=== PATIENT | female | born 1965 | race Caucasian/White ===

== ENCOUNTER → 2020-12-25 06:41 | Outpatient (CLI) | payer BC, SELFPAY ==
--- NOTE | 2020-12-25 06:58 | CT_ITS ---
STUDY: CT CHEST WITHOUT CONTRAST REASON FOR EXAM: Female, 55 years old. DYSPNEA,COUGH,ASTHMA RADIATION DOSAGE (If Supplied By Facility): CTDIvol = ( 7.64 ) mGy, DLP = ( 259.64 ) mGycm TECHNIQUE: Transaxial imaging was performed without the administration of intravenous contrast material. Multiplanar coronal and sagittal images were reformatted. Individualized dose optimization techniques were used for this CT. COMPARISON: None. FINDINGS: 5.4 cm x 5 cm bulla in the anterior medial aspect of the right upper lobe. Tiny calcified granuloma in the right upper lobe and right lower lobe. Increased linear markings with focal bronchiectasis in the anterior aspect of the right lower lobe. Mild increased markings at the left lung base with area of confluence in the lateral aspect of the left lower lobe as seen on axial image #96. This most likely represents a focal area of scarring. Focal area scarring is also seen in the posterior aspect of the right lower lobe abutting the pleura. A six-month follow-up examination is recommended for further evaluation. There is no demonstrated pleural abnormality. Normal heart and pericardium. There are multiple small lymph nodes within the mediastinum, which are normal in size and morphology most compatible with reactive lymph hyperplasia. Normal hilar regions. Normal unenhanced pulmonary arteries. Normal aorta arch and descending thoracic aorta. There are multi-level degenerative changes of the thoracic spine. There is no demonstrated abnormality of the visualized upper abdomen. CT/Chest without Contrast IMPRESSION: 5.4 TRAN by 5 cm bulla in the anterior medial aspect of the right upper lobe. Findings suggestive of scarring with focal nodular appearance in the lateral aspect of the left lower lobe as well as in the posterior aspect of the right lower lobe as described. A 6 month follow-up examination is recommended. Electronically Signed: Vasu Goins MD at 9:11 EDT , Service support ,
== END ==
PROVIDERS: PCP Nurse Practitioner Family; Visit Provider Internal Medicine Pulmonary Disease
DX: J45.909 Unspecified asthma, uncomplicated (principal); R06.00 Dyspnea, unspecified; R05 Cough
CPT/HCPCS: 71250

== ENCOUNTER 2021-01-13 10:38 | Day surgery (SDC) | payer BC, SELFPAY ==
[2021-01-13] VITALS (17 sets, daily range): BP systolic 93–122; BP diastolic 59–104; PULSE 60–96; RESP 12–28; TEMP 36.5–37.3; O2SAT 92–100; BMI 25.0
--- NOTE | 2021-01-13 | FLU_PTH ---
PATIENT: LEANNE REYEZ LOC: EN U#:[id number] AGE/SX: 55/F ROOM: RE01/13/[address]: Dr. Ras Portillo MD : 1965 BED: DIS: 01/13/2021 SPEC #: [id number] RECD: 01/13/21 13:14 STATUS: MAURIZIO REDenisse #: [id number] CARMELA: 01/13/21 00:[address]: Ras Portillo V DEPT: CYTOLOGY RECD BY: Sea [place] ENTERED: 01/14/21 08:46 SP TYPE: Fluid OTHR DR: Lacy Conklin, NURSE SITTER-C Tissues: Bronchus of left lower lobe Procedures: Special Stain Group II Surgery Specimen Level IV Cytospin Fluid HEADER OPERATION: Bronch BAL - LLL PRE-OP DIAGNOSIS: J38.5 TISSUE SUBMITTED: BAL, LLL DIAGNOSIS CYTOLOGY Bronchioalveolar lavage, left lower lobe of lung (cytospins and cell block): Negative for malignant cells Acute inflammatory cells. Negative for acid fast bacilli. Negative for fungal organisms. See Comment. JACQUES:jacques 01/15/21 COMMENT AFB and GMS stains with matched controls are negative for microorganisms. CYTOLOGY STUDY Slides are reviewed. CYTOLOGY GROSS Received is 25 ml of cloudy beige thick fluid labeled with the patient's name and and designated per the requisition as BAL LLL. Submitted for cytology preparation including cell block./AM;jacques 01/14/21 CPT: 31180
[2021-01-13] MEDS: Lactated Ringers 1,000 ML 100 ML IV (11:09)
[2021-01-13] MEDS: Ipratropium/Albuterol Sulfate 3 ML AMPUL.NEB INHALATION (11:43)
[2021-01-13] MEDS: Lidocaine 2% Jelly 1 APPLIC Tube (12:13)
[2021-01-13] MEDS: Phenylephrine 0.25% 15 ML NASAL.SRY 15 SPRAY NASAL (12:13)
[2021-01-13] MEDS: Lidocaine 2% (5ml sdv) 5 ML VIAL.MPF (12:13)
--- NOTE | 2021-01-13 13:06 | OP.BRONCH_ITS ---
Patient Name: Darlyn Wray Procedure Date: 01/13/2021 12:13 PM Date of : 1965 Age: 55 Procedure: Bronchoscopy Indications: Chronic cough with abnormal CT Providers: Ras Portillo MD Medicines: Lidocaine 2% Nebulizer 3 mL, Lidocaine applied to nares and subglottic space Complications: Vocal cord spasm with desaturation briefly to 50s, responding to high flow oxygen. <1 min, sats returned to high 90s Procedure: Pre-Anesthesia Assessment: - A History and Physical has been performed. The patient's medications, allergies and sensitivities have been reviewed. - The risks and benefits of the procedure and the sedation options and risks were discussed with the patient. All questions were answered and informed consent was obtained. - Pre-procedure physical examination revealed no contraindications to sedation. - Anasthesia under the supervision of a ARCHITECTURE DRAFTER was determined to be medically necessary for this procedure. After I obtained informed consent, the scope was passed under direct vision. Throughout the procedure, the patient's blood pressure, pulse, and oxygen saturations were monitored continuously. The bronchoscope was introduced through the left nostril and advanced to the tracheobronchial tree of both lungs. The procedure was accomplished with moderate difficulty due to laryngospasm. Pt did well with high flow oxygen and higher level of sedation. Moderate Sedation: An independent trained observer was present and continuously monitored the patient. Findings: Bronchoalveolar lavage was performed in the LLL lateral basal segments (B9) of the lung and sent for cell count and differential, aerobic culture, anaerobic culture, AFB analysis & culture and fungal analysis. 120 mL of fluid were instilled. 60 mL were returned. The return was blood-tinged and cloudy. There were no mucoid plugs in the return fluid. Multiple specimens were obtained, and each sent for analysis. Impression: Bronchiectasis with thick secretions, Recommendation: await culture Procedure Code(s): --- Professional --- 84180, Bronchoscopy, rigid or flexible, including fluoroscopic guidance, when performed; with bronchial alveolar lavage Diagnosis Code(s): --- Professional --- R05, Cough R91.8, Other nonspecific abnormal finding of lung field CPT copyright 2017 [employer]. All rights reserved. The codes documented in this report are preliminary and upon pressure controller review may be revised to meet current compliance requirements. MD Ras Adames MD 01/13/2021 1:05:17 PM This report has been signed electronically. Number of Addenda: 0 Note Initiated On: 01/13/2021 12:13 PM
--- NOTE | 2021-01-13 13:28 | SUR.PHASEI ---
ON PACU ARRIVAL, STRIDOROUS INHALATION, C/O CANNOT BREATH, VERY FREQUENT COUGH, LUNGS CLEAR PER AUSCULTATION, AUDIBLE UPPER AIRWAY ADVENTITIOUS SOUNDS. CALLED TITO HURLEY & ABRAHAM TO BEDSIDE. DR HURLEY ORDERED ADDITIONAL DUONEB. DR ROSARIO ORDERED HELIOX THERAPY [80/20] AND RACEMIC EPINEPHRINE AEROSOL TX. PATIENT REPORTS FEELING MUCH IMPROVED WITH RACEMIC EPI & HELIOX THERAPY. COUGHING SUBSIDED.
[2021-01-13 14:27] LABS: Appearance/Body Fluid CLOUDY; Color/Body Fluid SLIGHTLY PINK; Source- Body Fluid BRONCHIAL LAVAGE
[2021-01-13 14:28] LABS: Red Cell Count/Body Fluid 997 /mm3; White Blood Count/Body Fluid 942 /mm3
[2021-01-13 14:55] LABS: Lymphocytes 38 %; Neutrophil (Segs) 62 %
[2021-01-13 14:58] LABS: Body Fluid QC Type(s) BF1Q
[2021-01-14 16:43] LABS: Pathologist Comment/Body Fluid Reviewed
== END 2021-01-13 15:05 ==
LOC: EN 10:40 → AC 10:41
PROVIDERS: PCP Nurse Practitioner Family; Referring Provider Nurse Practitioner Family; Visit Provider Internal Medicine Pulmonary Disease
PROC: 0BJ08ZZ Inspection of Tracheobronchial Tree, Via Natural or Artificial Opening Endoscopic (ICD-10-PCS; CPT 31622; principal; 2021-01-13 11:45)
DX: J47.9 Bronchiectasis, uncomplicated (principal); J45.40 Moderate persistent asthma, uncomplicated; J30.89 Other allergic rhinitis; I10 Essential (primary) hypertension; K21.9 Gastro-esophageal reflux disease without esophagitis; Z79.52 Long term (current) use of systemic steroids; Z79.899 Other long term (current) drug therapy
CPT/HCPCS: 31624; 87015; 87070; 87077; 87101; 87116; 87186; 87205; 87206; 88108; 88305; 88313; 89050; 94640; J7120; J2405

== ENCOUNTER → 2021-01-20 10:16 | Outpatient (CLI) | payer BC, SELFPAY ==
[2021-01-20] MEDS: 0.9% NaCl IVPB Med Flush (250 mL) 15 ML IV ×2 (10:27→19:07)
[2021-01-20] MEDS: 0.9% NaCl Peripheral Flush Adult/Peds IV ×3 (10:27→19:08)
[2021-01-20 10:31] VITALS: BP 128/77; PULSE 65; RESP 16; TEMP 37.1; O2SAT 95
[2021-01-20 19:09] VITALS: BP 129/83; PULSE 81; RESP 16; TEMP 37.2; O2SAT 98
[2021-01-20 20:03] VITALS: BP 121/74; PULSE 72; RESP 16; O2SAT 97
== END ==
PROVIDERS: PCP Nurse Practitioner Family; Referring Provider Nurse Practitioner Family; Visit Provider Nurse Practitioner Family
DX: J47.9 Bronchiectasis, uncomplicated (principal); B96.5 Pseudomonas (aeruginosa) (mallei) (pseudomallei) as the cause of diseases classified elsewhere
CPT/HCPCS: 96365 ×2; J7050; A4216

== ENCOUNTER → 2021-01-21 | Outpatient (CLI) | payer BC, SELFPAY ==
[2021-01-21] MEDS: 0.9% NaCl IVPB Med Flush (250 mL) 15 ML IV ×2 (07:41→18:59)
[2021-01-21] MEDS: 0.9% NaCl Peripheral Flush Adult/Peds IV ×3 (07:41→18:59)
[2021-01-21 08:00] VITALS: BP 122/77; PULSE 66; RESP 16; TEMP 36.3; O2SAT 99; BMI 24.7
[2021-01-21 19:06] VITALS: BP 107/60; PULSE 75; RESP 16; TEMP 37.1; O2SAT 99; BMI 24.7
== END | disposition home or self-care (01) ==
LOC: MEDOUTP 07:38
PROVIDERS: PCP Nurse Practitioner Family; Referring Provider Nurse Practitioner Family; Visit Provider Nurse Practitioner Family
DX: J47.9 Bronchiectasis, uncomplicated (principal); B96.5 Pseudomonas (aeruginosa) (mallei) (pseudomallei) as the cause of diseases classified elsewhere
CPT/HCPCS: 96365 ×2; J7050; A4216

== ENCOUNTER → 2021-01-22 07:28 | Outpatient (CLI) | payer BC, SELFPAY ==
[2021-01-22 07:38] VITALS: BP 128/72; PULSE 66; RESP 16; TEMP 36.3; O2SAT 99
[2021-01-22] MEDS: 0.9% NaCl Peripheral Flush Adult/Peds IV ×2 (07:43→19:27)
[2021-01-22] MEDS: 0.9% NaCl IVPB Med Flush (250 mL) 15 ML IV ×2 (07:43→19:27)
[2021-01-22 19:31] VITALS: BP 104/61; PULSE 74; RESP 16; TEMP 37; O2SAT 98; BMI 24.5
[2021-01-22 20:14] VITALS: BP 101/54; PULSE 74; RESP 16
[2021-01-28 03:07] LABS: Immunoglobulin A 328 mg/dL (87-352); Immunoglobulin G 823 mg/dL (586-1602); Immunoglobulin M 59 mg/dL (26-217)
[2021-01-28 07:39] LABS: Immunoglobulin E 17 IU/mL (6-495)
== END ==
PROVIDERS: PCP Nurse Practitioner Family; Referring Provider Nurse Practitioner Family; Visit Provider Nurse Practitioner Family
DX: J47.9 Bronchiectasis, uncomplicated (principal); J15.1 Pneumonia due to Pseudomonas
CPT/HCPCS: 96365 ×2; 36415; 82784; 82785; J7050; A4216

== ENCOUNTER → 2021-01-23 07:02 | Outpatient (CLI) | payer BC, SELFPAY ==
[2021-01-23] MEDS: 0.9% NaCl IVPB Med Flush (250 mL) 15 ML IV ×2 (07:33→19:00)
[2021-01-23] MEDS: 0.9% NaCl Peripheral Flush Adult/Peds IV ×2 (07:33→19:01)
[2021-01-23 07:38] VITALS: BP 117/63; PULSE 69; RESP 16; TEMP 36.5; O2SAT 100; BMI 24.7
[2021-01-23 08:24] VITALS: BP 110/67; PULSE 65; RESP 16; TEMP 36.6; O2SAT 100
[2021-01-23 19:08] VITALS: BP 110/56; PULSE 75; RESP 16; TEMP 36.6; O2SAT 96; BMI 24.7
[2021-01-23 19:43] VITALS: BP 102/58; O2SAT 95
== END ==
PROVIDERS: PCP Nurse Practitioner Family; Referring Provider Nurse Practitioner Family; Visit Provider Nurse Practitioner Family
DX: J47.9 Bronchiectasis, uncomplicated (principal); B96.5 Pseudomonas (aeruginosa) (mallei) (pseudomallei) as the cause of diseases classified elsewhere
CPT/HCPCS: 96365 ×2; J7050; A4216

== ENCOUNTER → 2021-01-24 07:14 | Outpatient (CLI) | payer BC, SELFPAY ==
[2021-01-24] MEDS: 0.9% NaCl Peripheral Flush Adult/Peds IV (07:34)
[2021-01-24 07:35] VITALS: BP 119/72; PULSE 62; RESP 16; TEMP 37.1; O2SAT 98
[2021-01-24] MEDS: 0.9% NaCl IVPB Med Flush (250 mL) 15 ML IV (07:35)
[2021-01-24 08:16] VITALS: BP 121/70; PULSE 68
[2021-01-24 19:06] VITALS: BP 126/74; PULSE 73; RESP 16; TEMP 36.6; O2SAT 98
== END ==
PROVIDERS: PCP Nurse Practitioner Family; Referring Provider Nurse Practitioner Family; Visit Provider Nurse Practitioner Family
DX: J47.9 Bronchiectasis, uncomplicated (principal); B96.5 Pseudomonas (aeruginosa) (mallei) (pseudomallei) as the cause of diseases classified elsewhere
CPT/HCPCS: 96365 ×2; J7050; A4216

== ENCOUNTER → 2021-01-25 07:31 | Outpatient (CLI) | payer BC, SELFPAY ==
[2021-01-25] MEDS: 0.9% NaCl Peripheral Flush Adult/Peds IV ×3 (07:43→18:38)
[2021-01-25] MEDS: 0.9% NaCl IVPB Med Flush (250 mL) 15 ML IV ×2 (07:44→18:41)
[2021-01-25 07:45] VITALS: BP 121/72; PULSE 71; RESP 16; TEMP 36.9; O2SAT 98; BMI 24.5
[2021-01-25 18:42] VITALS: BP 108/68; PULSE 76; RESP 16; TEMP 36.9; O2SAT 95
[2021-01-25 19:14] VITALS: BP 107/61; PULSE 69; RESP 16; TEMP 36.7; O2SAT 100
== END ==
PROVIDERS: PCP Nurse Practitioner Family; Referring Provider Nurse Practitioner Family; Visit Provider Nurse Practitioner Family
DX: J47.9 Bronchiectasis, uncomplicated (principal); B96.5 Pseudomonas (aeruginosa) (mallei) (pseudomallei) as the cause of diseases classified elsewhere
CPT/HCPCS: 96365 ×2; J7050; A4216

== ENCOUNTER → 2021-01-26 07:30 | Outpatient (CLI) | payer BC, SELFPAY ==
[2021-01-26] MEDS: 0.9% NaCl Peripheral Flush Adult/Peds IV ×2 (07:47→19:06)
[2021-01-26] MEDS: 0.9% NaCl IVPB Med Flush (250 mL) 15 ML IV ×2 (07:47→19:05)
[2021-01-26 07:48] VITALS: BP 105/63; PULSE 65; RESP 16; TEMP 36.7; O2SAT 98
[2021-01-26 19:07] VITALS: BP 103/58; PULSE 82; RESP 16; TEMP 36.4; O2SAT 97
[2021-01-26 19:42] VITALS: BP 103/61; PULSE 84; RESP 16; O2SAT 98
== END ==
PROVIDERS: PCP Nurse Practitioner Family; Referring Provider Nurse Practitioner Family; Visit Provider Nurse Practitioner Family
DX: J47.9 Bronchiectasis, uncomplicated (principal); B96.5 Pseudomonas (aeruginosa) (mallei) (pseudomallei) as the cause of diseases classified elsewhere
CPT/HCPCS: 96365 ×2; J7050; A4216

== ENCOUNTER → 2021-01-27 07:28 | Outpatient (CLI) | payer BC, SELFPAY ==
[2021-01-27] MEDS: 0.9% NaCl IVPB Med Flush (250 mL) 15 ML IV ×2 (07:41→19:05)
[2021-01-27] MEDS: 0.9% NaCl Peripheral Flush Adult/Peds IV ×2 (07:41→19:05)
[2021-01-27 07:44] VITALS: BP 110/70; PULSE 68; RESP 16; TEMP 37; O2SAT 98; BMI 25.4
[2021-01-27 18:58] VITALS: BP 110/63; PULSE 77; RESP 16; TEMP 35.9; O2SAT 96; BMI 24.7
[2021-01-27 19:54] VITALS: BP 99/58; PULSE 80; RESP 16; TEMP 36.4; O2SAT 96
== END ==
PROVIDERS: PCP Nurse Practitioner Family; Referring Provider Nurse Practitioner Family; Visit Provider Nurse Practitioner Family
DX: J47.9 Bronchiectasis, uncomplicated (principal); B96.5 Pseudomonas (aeruginosa) (mallei) (pseudomallei) as the cause of diseases classified elsewhere
CPT/HCPCS: 96365 ×2; J7050; A4216

== ENCOUNTER → 2021-01-28 07:33 | Outpatient (CLI) | payer BC, SELFPAY ==
[2021-01-28] MEDS: 0.9% NaCl IVPB Med Flush (250 mL) 15 ML IV ×2 (07:47→19:04)
[2021-01-28] MEDS: 0.9% NaCl Peripheral Flush Adult/Peds IV ×2 (07:47→19:04)
[2021-01-28 07:50] VITALS: BP 125/80; PULSE 72; RESP 16; TEMP 37; O2SAT 99; BMI 25.4
[2021-01-28 08:30] VITALS: BP 108/68; PULSE 66; RESP 16; TEMP 37.3; O2SAT 98
[2021-01-28 19:09] VITALS: BP 99/60; PULSE 74; RESP 16; TEMP 36.8; O2SAT 97
== END ==
PROVIDERS: PCP Nurse Practitioner Family; Referring Provider Nurse Practitioner Family; Visit Provider Nurse Practitioner Family
DX: J47.9 Bronchiectasis, uncomplicated (principal); B96.5 Pseudomonas (aeruginosa) (mallei) (pseudomallei) as the cause of diseases classified elsewhere
CPT/HCPCS: 96365 ×2; J7050; A4216

== ENCOUNTER → 2021-01-29 07:29 | Outpatient (CLI) | payer BC, SELFPAY ==
[2021-01-29] MEDS: 0.9% NaCl Peripheral Flush Adult/Peds IV ×2 (07:38→19:07)
[2021-01-29] MEDS: 0.9% NaCl IVPB Med Flush (250 mL) 15 ML IV ×2 (07:38→19:06)
[2021-01-29 07:40] VITALS: BP 123/74; PULSE 70; RESP 16; TEMP 36.6; O2SAT 98
[2021-01-29 08:18] VITALS: BP 116/68; PULSE 68; RESP 16; O2SAT 99
[2021-01-29 19:04] VITALS: BP 101/55; PULSE 72; RESP 16; TEMP 36.5; O2SAT 95
== END ==
PROVIDERS: PCP Nurse Practitioner Family; Referring Provider Nurse Practitioner Family; Visit Provider Nurse Practitioner Family
DX: J47.9 Bronchiectasis, uncomplicated (principal); B96.5 Pseudomonas (aeruginosa) (mallei) (pseudomallei) as the cause of diseases classified elsewhere
CPT/HCPCS: 96365 ×2; J7050; A4216

== ENCOUNTER → 2022-01-05 | Outpatient (CLI) | payer BC, SELFPAY | END | disposition home or self-care (01) | LOC: LAB.FUTURE 07:48 | PROVIDERS: PCP Nurse Practitioner Family; Visit Provider Internal Medicine Pulmonary Disease | DX: R05.9 Cough, unspecified (principal) | CPT/HCPCS: 87070; 87205 ==